=== PATIENT | female | born 1975 | race Caucasian/White ===

== ENCOUNTER 2018-02-08 01:59 | Emergency (ER) | payer SELFPAY ==
[2018-02-08] MEDS ORDERED: Ibuprofen TAB* 800 MG PO ONE (02:13)
[2018-02-08] MEDS ORDERED: oxyCODONE/Acetamin 5/325 MG* TAB PO ONE (02:13)
--- NOTE | 2018-02-08 02:54 | ED ---
Jeff Lewis Jade, scribed for Catherine Clement MD on 02/08/18 at 0227 . Lower Extremity - HPI Summary HPI Summary: Pt is a 42 y/o female who presents to the ED c/o left ankle pain. Pt states the pain is behind her left ankle since 1 week ago, and has been intermittent up until the past few days. A few days ago the pain became constant and radiates up her calf and down the arch of her foot. Today she twisted her ankle while working at the [facility] [employer] [facility]. Pt states it hurts to walk on it. - History of Current Complaint Chief Complaint: EDExtremityLower Stated Complaint: LT ANKLE INJURY Time Seen by Provider: 02/08/18 02:06 Hx Obtained From: Patient Hx Last Menstrual Period: 4.5 WEEKS AGO Mechanism Of Injury: Twisted Onset of Pain: Days - 1 week ago Severity Currently: Moderate Pain Intensity: 7 Pain Scale Used: 0-10 Numeric Timing: Constant Location: Radiates To - Left ankle radiates to left calf and arch of foot Able to Bear Weight: No - Allergies/Home Medications Allergies/Adverse Reactions: Allergies Allergy/AdvReac Type Severity Reaction Status Date / Time No Known Allergies Allergy Verified 03/10/16 12:12 PMH/Surg Hx/FS Hx/Imm Hx Endocrine/Hematology History: Denies: Hx Diabetes, Hx Thyroid Disease Cardiovascular History: Denies: Hx Congestive Heart Failure, Hx Deep Vein Thrombosis, Hx Hypertension , Hx Myocardial Infarction, Hx Pacemaker/ICD Respiratory History: Denies: Hx Asthma, Hx Chronic Obstructive Pulmonary Disease (COPD), Hx Lung Cancer, Hx Pneumonia, Hx Pulmonary Embolism GI History: Denies: Hx Ulcer Neurological History: Reports: Hx Migraine Denies: Hx Dementia, Hx Seizures, Hx Transient Ischemic Attacks (TIA) Psychiatric History: Denies: Hx Anxiety, Hx Depression, Hx Schizophrenia, Hx Bipolar Disorder - Surgical History Surgery Procedure, Year, and Place: C-CECTION. . TONSILLECTOMY. LEEP OPERATION Infectious Disease History: No Infectious Disease History: Denies: Hx Hepatitis, Hx Human Immunodeficiency Virus (HIV), Traveled Outside the [place] in Last 30 Days - Family History Known Family History: Positive: Hypertension - Social History Alcohol Use: Rare Substance Use Type: Reports: None Smoking Status (MU): Heavy Every Day Tobacco Smoker Type: Cigarettes Amount Used/How Often: 4-5 CIGS/DAY Length of Time of Smoking/Using Tobacco: 3+ YEARS Review of Systems Negative: Fever Positive: Arthralgia - Left ankle pain All Other Systems Reviewed And Are Negative: Yes Physical Exam - Summary Physical Exam Summary: VITAL SIGNS: Reviewed. GENERAL: ~Patient is a well-developed and nourished female who is lying comfortable in the stretcher. Patient is not in any acute respiratory distress. HEAD AND FACE: No signs of trauma. No ecchymosis, hematomas or skull depressions. No sinus tenderness. EYES: PERRLA, EOMI x 2, No injected conjunctiva, no nystagmus. EARS: Hearing grossly intact. Ear canals and tympanic membranes are within normal limits. MOUTH: Oropharynx within normal limits. NECK: Supple, trachea is midline, no adenopathy, no JVD, no carotid bruit, no c- spine tenderness, neck with full ROM. CHEST: Symmetric, no tenderness at palpation LUNGS: Clear to auscultation bilaterally. No wheezing or crackles. CVS: Regular rate and rhythm, S1 and S2 present, no murmurs or gallops appreciated. ABDOMEN: Soft, non-tender. No signs of distention. No rebound no guarding, and no masses palpated. Bowel sounds are normal. EXTREMITIES: Left ankle : Tenderness over the medial malleolus was no swelling, pain with movement, neuro vascular exam is intact distally NEURO: Alert and oriented x 3. No acute neurological deficits. Speech is normal and follows commands. SKIN: Dry and warm Triage Information Reviewed: Yes Vital Signs On Initial Exam: Initial Vitals Temp Pulse Resp BP Pulse Ox 98 F 89 20 150/84 97 02/08/18 02:01 02/08/18 02:01 02/08/18 02:01 02/08/18 02:01 02/08/18 02:01 Vital Signs Reviewed: Yes Diagnostics - Vital Signs Vital Signs Temp Pulse Resp BP Pulse Ox 02/08/18 02:01 98 F 89 20 150/84 97 - Laboratory Lab Statement: Any lab studies that have been ordered have been reviewed, and results considered in the medical decision making process. - Radiology Ankle XR Xray Interpretation: No Acute Changes - No fracture. ED physician reviewed radiology report. Pending official report. Radiology Interpretation Completed By: Radiologist Re-Evaluation - Re-Evaluation First Eval Re-Evaluation Time: 02:39 Comment: Discussed results and discharge. Lower Extremity Course/Dx - Course Course Of Treatment: Pt is a 42 y/o female who presents to the ED c/o left ankle pain. Pt states the pain is behind her left ankle since 1 week ago, and has been intermittent up until the past few days, when it became constant. Pain radiates up her calf and down the arch of her foot. Today she twisted her ankle. Pt states it hurts to walk on it. An ankle XR revealed no fracture. In the ED course, pt was given Ibuprofen and Percocet. Patient will be discharged with a final Dx of left ankle pain. She is to follow up with an orthopedist on Saturday. Pt is agreeable with this plan. - Diagnoses Provider Diagnoses: Ankle pain, left Discharge - Sign-Out/Discharge Documenting (check all that apply): Discharge/Admit/Transfer - Discharge - Discharge Plan Condition: Stable Disposition: HOME Prescriptions: Ibuprofen TAB* [Motrin TAB* 800 MG] 800 mg PO Q6H PRN #30 tab PRN Reason: Pain Patient Education Materials: Crutch Instructions (ED), Arthralgia (ED) Referrals: Jordy Yoon MD [Primary Care Provider] - 3 Days Jordy Tavares MD [Medical Doctor] - 02/10/18 Additional Instructions: RETURN TO EMERGENCY DEPARTMENT FOR ANY NEW OR WORSENING SYMPTOMS. Use crutches. Follow up with orthopedist. - Billing Disposition and Condition Condition: STABLE Disposition: Home The documentation as recorded by the Jeff robertson Jade accurately reflects the service I personally performed and the decisions made by me, Catherine Clement MD.
[2018-02-08 03:26] VITALS: BP 141/86
--- NOTE | 2018-02-08 08:52 | RAD ---
INDICATION: Lateral ankle pain after rolling injury COMPARISON: None. TECHNIQUE: 3 views of the left ankle were obtained. FINDINGS: The well corticated bones exhibit normal alignment. An enthesophyte is noted at the origin of the plantar fascia on the calcaneal tubercle. Joint spaces appear maintained. No fracture is seen. IMPRESSION: NO RADIOGRAPHICALLY VISIBLE FRACTURE OR DISLOCATION OF THE LEFT ANKLE. If the patient's symptoms persist, follow-up imaging is recommended.
== END 2018-02-08 03:25 | disposition home or self-care (01) ==
LOC: ED 01:59
DX: M25.572 Pain in left ankle and joints of left foot (principal); F17.210 Nicotine dependence, cigarettes, uncomplicated; X50.1XXA Overexertion from prolonged static or awkward postures, initial encounter; Y92.89 Other specified places as the place of occurrence of the external cause
CPT/HCPCS: 99283; A9270-GY

== ENCOUNTER 2019-02-05 05:42 | Day surgery (SDC) | payer OTHER ==
[~2019-02-05 05:42] MED LIST: Buffered Lidocaine 1% SYRIN* 1 ML/SYRINGE INTRADERM ONE; Ondansetron TAB* 4 MG PO ONE
[2019-02-05] MEDS ORDERED: Scopolamine 1.5 mg* PATCH TRANSDERM PRN (05:59)
[2019-02-05] MEDS ORDERED: PROCHLORPERAZINE INJ 5 MG/ML 2 ML VIAL IV PRN (05:59)
[2019-02-05] MEDS ORDERED: Morphine 4 MG/ML VIAL (1 ml) 4 MG/ML VIAL IV PRN (05:59)
[2019-02-05] MEDS ORDERED: DiMENhydriNATE IV* 50 MG/ML VIAL IV PUSH PRN (05:59)
[2019-02-05] MEDS ORDERED: oxyCODONE/Acetamin 5/325 MG* TAB PO PRN (05:59)
[2019-02-05] MEDS ORDERED: Naloxone* 0.4 MG/ML 1 ML VIAL IV PRN (05:59)
[2019-02-05] MEDS ORDERED: Famotidine IV* 10 MG/ML 2 ML (20 mg) IV ONE (06:00)
[2019-02-05] MEDS ORDERED: Dexamethasone TAB* 4 MG PO ONE (06:00)
[2019-02-05] MEDS ORDERED: Lactated Ringers 1000 ML Bag* 1,000 ML IV SCH (06:00)
[2019-02-05] MEDS ORDERED: Dexamethasone TAB* 4 MG ONE (06:35)
[2019-02-05] MEDS ORDERED: ceFAZolin 2 GM PREMIX in ORs 2 GM/50 ML BAG ONE (06:35)
[2019-02-05] MEDS ORDERED: Ondansetron ODT TAB* 4 MG ONE (06:35)
[2019-02-05] MEDS ORDERED: Famotidine IV* 10 MG/ML 2 ML (20 mg) ONE (06:35)
[2019-02-05] MEDS ORDERED: Buffered Lidocaine 1% SYRIN* 1 ML/SYRINGE INTRADERM ONE (06:35)
[2019-02-05] MEDS ORDERED: Bupivacaine 0.5%* 50 ML VIAL ONE (06:46)
[2019-02-05] MEDS ORDERED: Lidocaine 2% PF* 10 ML AMP ONE (06:46)
[2019-02-05] MEDS ORDERED: KETAMINE HCL* 50 MG/ML 10 ML VIAL ONE (07:14)
[2019-02-05] MEDS ORDERED: fentaNYL* 50 MCG/ML 2 ML VIAL (100 MCG VIAL) ONE ×3 (07:14→09:25)
[2019-02-05] MEDS ORDERED: Midazolam* 1 MG/ML 5 ML VIAL (5 MG) ONE (07:15)
[2019-02-05] MEDS ORDERED: Lidocaine 2% PF * 5 ML VIAL ONE (07:16)
[2019-02-05] MEDS ORDERED: Propofol* 10 MG/ML 20 ML BTL ONE (07:16)
[2019-02-05] MEDS ORDERED: Ketorolac INJ* 30 MG/ML 1 ML VIAL ONE (07:52)
--- NOTE | 2019-02-05 08:48 | OP ---
Operative Report - Blank - Operative Report Date of Operation: 02/05/19 Note: PATIENT: Tali Acuna DATE OF : 1975 DATE OF SURGERY: 02/05/2019 SURGEON: Matthew Armando MD REWEAVER: IRON Crowe, whos assistance was necessary for positioning, retraction, help with instrumentation, and closure. ANESTHESIOLOGIST: Dr. Grace PREOPERATIVE DIAGNOSIS: Left saphenous neuroma POSTOPERATIVE DIAGNOSIS: Left saphenous neuroma OPERATION: Excision of left saphenous neuroma and burial in bone ANESTHESIA: General IMPLANTS: none TOURNIQUET TIME: Less than 1 hour with a well-padded thigh tourniquet at 250mmHg SPECIMENS: none ESTIMATED BLOOD LOSS: minimal COMPLICATIONS: none STATUS: Stable from the operating room to the recovery room and then home. INDICATIONS FOR PROCEDURE: Tali has been having medial ankle and distal leg pain since an injury about a year ago despite extensive non-operative treatment. A lidocaine injection at the saphenous nerve alleviated her symptoms. Both operative and non-operative treatment alternatives were reviewed. Further, the nature and risks of surgery were reviewed in careful detail. Our discussions regarding the risks of surgery included, but were not limited to, infection, wound problems, recurrent neuroma , RSD, persistent symptoms, blood clot, need for further surgery, failure of the surgery, and even the remote chance of catastrophic complication, including loss of limb. DESCRIPTION OF PROCEDURE: The patient was seen in the preoperative holding unit and informed written consent was obtained. The appropriate extremity was marked. The patient was then brought to the operating room and carefully positioned on the operating room table. Anesthesia was induced. All bony prominences were padded with great care. A well-padded thigh tourniquet was placed. A chlorhexidine based pre- scrub was performed followed by a chloraprep prep and drape in standard sterile fashion. A surgical safety pause was then conducted in which we confirmed the appropriate patient, extremity, planned procedure, availability of equipment, indication and administration of prophylactic antibiotics, and DVT prophylaxis in the form of a compression boot on the non-surgical extremity. A longitudinal incision was made over the medial distal leg, centered at the site of maximal tenderness and positive Tinel's. I carefully dissected down to the soft tissues and exposed the saphenous nerve and vein bundle. The nerve was dissected distally. It was amputated distally. There was thickening of the nerve at the site of her maximal pain. The nerve was transected proximal to this and the neuroma excised. The proximal stump of the saphenous nerve was mobilized and was found to have enough excursion to be implanted into the distal tibia. A decision was made to bury it into the tibia in the distal metadiaphysis. This allowed for deep burial of the nerve stump without any tension being placed on the nerve. Drill holes were made into the tibia and aspiration was used to bring the nerve stump into the medullary cavity of the tibia. Once the nerve stump had been advanced deeply into the bone a 4-0 Prolene suture through the epineurium was used to secure the nerve to the tibial periosteum. The wound was copiously irrigated and meticulously closed in layers utilizing 3- 0 Monocryl and 3-0 Nylon. A sterile dressing was then applied. The patient was then awakened from anesthesia and transferred to the recovery room in stable condition. There were no complications. All needle and sponge counts were correct at the end of the case. ATTESTATION: I attest I was present and scrubbed and performed the critical portions of the procedure myself. POSTOPERATIVE PLAN: She will followup in 2 weeks for likely suture removal and application of Steri-Strips.
[2019-02-05] MEDS ORDERED: oxyCODONE/Acetamin 5/325 MG* TAB ONE (09:12)
[2019-02-05] MEDS: fentaNYL* 50 MCG/ML 2 ML VIAL (100 MCG VIAL) IV PRN ×2 (09:25→09:31)
[2019-02-05 10:38] VITALS: BP 111/81
[2019-02-08] MEDS ORDERED: Scopolamine PATCH Remove* 1 NOTE MISC PATCH OFF ONE (06:00)
== END 2019-02-05 10:40 | disposition home or self-care (01) ==
LOC: OR 05:42
PROVIDERS: ATTEND Orthopaedic Surgery
DX: G57.82 Other specified mononeuropathies of left lower limb (principal); Z72.0 Tobacco use
CPT/HCPCS: 81025; A9270-GY; J0690; J1885; J2001; J2250; J2704; J3010; J3490; J8540